=== PATIENT | female | born 2000 | race African-American/Black ===

== ENCOUNTER 2020-05-31 21:27 | Observation (INO) | payer MEDICAID, OTHER ==
[~2020-05-31] VITALS: Ht 165.1 cm; Wt 54.4 kg
[2020-05-31] MEDS ORDERED: DEXT 5%/LACTATED RINGERS 1,000 ML IV SCH (22:00)
[2020-05-31] MEDS ORDERED: ACETAMINOPHEN 500MG TABLET PO NR (22:45)
[2020-05-31 22:55] LABS: BASOPHILS % 0.2 % (0.0-2.0); EOSINOPHILS % 0.3 % (0.0-5.0); HEMOGLOBIN. 9.1 g/dL (12.0-16.0); LYMPHOCYTES % 11.7 % (20.0-50.0); MEAN CORPUSCULAR HEMOGLOBIN 24.4 pg (28.0-32.0); MEAN CORPUSCULAR VOLUME 74.8 fL (81.0-99.0); MEAN PLATELET VOLUME 8.4 fl (7.4-10.4); MONOCYTES % 9.2 % (2.0-8.0); NEUTROPHILS % 78.6 % (40.0-76.0); PLATELET 297 x1000/uL (130-400); RED BLOOD CELL COUNT 3.75 mill/uL (4.2-5.4); RED CELL DISTRIBUTION WIDTH 15.9 % (11.6-14.6)
[2020-05-31 22:55] LABS: CLARITY URINE CLEAR (CLEAR); COLOR URINE DARK YELLOW (YELLOW); KETONES URINE 3+ (NEGATIVE); LEUKOCYTE ESTERASE URINE 3+ (NEGATIVE); NITRITE URINE NEGATIVE (NEGATIVE); OCCULT BLOOD URINE NEGATIVE (NEGATIVE); PROTEIN URINE 1+ (NEGATIVE); SPECIFIC GRAVITY URINE 1.028 (1.005-1.030)
[2020-06-01] MEDS ORDERED: CEFAZOLIN 2,000 MG in DEXT 5% WATER 100 ML IV SCH ×2
[2020-06-01] MEDS ORDERED: PNV1TABL76 PO (01:18)
== END 2020-06-01 01:30 | disposition home or self-care (01) ==
LOC: 8 EST LDRP 21:27
PROVIDERS: ADMIT Obstetrics & Gynecology; ATTEND Obstetrics & Gynecology
DX: O26.893 Other specified pregnancy related conditions, third trimester (principal); R10.9 Unspecified abdominal pain; R42 Dizziness and giddiness; Z3A.31 31 weeks gestation of pregnancy
CPT/HCPCS: 36415; 59025; 76805; 76818; 76830; 81003; 85025; 96361; 96365; G0378; J0690; J7060; 96360; 99281

== ENCOUNTER 2022-07-27 17:23 | Observation (INO) | payer MEDICAID ==
[~2022-07-27] VITALS: Ht 157.5 cm; Wt 72.6 kg
[~2022-07-27 17:23] MED LIST: PNV1TABL76 PO
== END 2022-07-27 18:49 | disposition home or self-care (01) ==
LOC: 8 EST LDRP 17:23
PROVIDERS: ADMIT Obstetrics & Gynecology; ATTEND Obstetrics & Gynecology
DX: O62.9 Abnormality of forces of labor, unspecified (principal); O26.893 Other specified pregnancy related conditions, third trimester; H53.8 Other visual disturbances; Z3A.37 37 weeks gestation of pregnancy
CPT/HCPCS: 59025; 76815; 76818; G0378; 99281; G0379